=== PATIENT | male | born 1945 | race Caucasian/White ===

== ENCOUNTER 2019-08-10 05:50 | Inpatient (IN) | payer MEDICARE, OTHER, SELFPAY ==
[2019-07-27 12:40] VITALS: BMI 35.1
[2019-08-10] VITALS (14 sets, daily range): BP systolic 96–137; BP diastolic 57–78; PULSE 51–82; RESP 9–18; TEMP 36.1–37.4; O2SAT 90–95; BMI 35.1
--- NOTE | 2019-08-10 06:31 | DI.RAD.S_ITS ---
PROCEDURE: XR SHOULDER RT MIN 2V INDICATIONS: post op films TECHNIQUE: 1 views of the shoulder were acquired. COMPARISON: [facility] [place], [place], XR SHOULDER 2+ VIEWS RIGHT, 06/14/2019, 11:37. FINDINGS: Bones: There is right shoulder arthroplasty with prosthesis in anatomic alignment. There is lower cervical spine fusion. No suspicious bony lesions. Visualized ribs appear intact. Soft tissues: No suspicious soft tissue calcifications. Overlying postsurgical changes are noted. IMPRESSION: Right shoulder arthroplasty with prosthesis in anatomic alignment. Dictated by: Ignacia Asif M.D. on 08/10/2019 at 13:46 Approved by: Ignacia Asif M.D. on 08/10/2019 at 13:46
[2019-08-10] MEDS: PREGABALIN 75 MG CAPSULE PO (06:56)
[2019-08-10] MEDS: MELOXICAM 7.5 MG TABLET 15 MG PO (06:56)
[2019-08-10] MEDS: ACETAMINOPHEN 325 MG TABLET 975 MG PO ×3 (06:56→20:24)
--- NOTE | 2019-08-10 07:03 | PM.PREOP ---
Pre-operative Note Interval Note History & Physical reviewed/Exam performed by Physician: Yes Changes to H&P: No
[2019-08-10] MEDS: LACTATED RINGERS 1,000 ML 42 ML IV ×2 (07:23→10:54)
[2019-08-10] MEDS: MIDAZOLAM 2 MG/2 ML VIAL IV (08:13)
[2019-08-10] MEDS: CEFAZOLIN 2 GM/100 ML FROZ.PIGGY IV (08:14)
--- NOTE | 2019-08-10 08:15 | SUR.PREOP ---
Block start time [0804] . Monitoring initiated and maintained throughout procedure. Oxygen and medications given per anesthesiologist instructions. Patient remained stable throughout procedure, no adverse reactions noted. Block end time [0808].
[2019-08-10] MEDS: TRANEXAMIC ACID 1,000 MG VIAL 1000 MG INJ ×2 (08:30→10:56)
[2019-08-10] MEDS: BUPIVACAINE 0.5% W/ EPI (PF) 30 ML VIAL INJ (08:47)
--- NOTE | 2019-08-10 09:17 | SUR.OPER ---
Beach chair with Schlein shoulder positioner. Lower body on padded OR bed. Head in foam padded head cradle, secured with straps. Non-operative arm secured <90 degrees abduction. Pillow under knees, gel pad to heels. Safety belt at thigh. Cloth tape over blanket over lower legs.
--- NOTE | 2019-08-10 09:18 | P.PCN_ITS ---
Procedures Date/Time Date of procedure: 08/10/19 Time of procedure: 07:54 Nerve Block Time out performed: Yes Local anesthetic used: other (15mL 0.5opivacaine, 5mL 2* idocaine) Location of anesthetic used: interscalene Amount of anesthesia used (mL): 20 Nerve blocks: brachial plexus (interscalene) Procedure successful: Yes Patient tolerated procedure: well Complications: none Additional comments: Brachial plexus nerve block for post operative pain management. Risks and benefits discussed, including bleeding, infection, intravascular injection, nerve damage, block failure. Standard ASA monitors, NC O2. Pt supine. Chloroprep site preparation, sterile technique. Brachial plexus identified with US guidance, traced from supraclavicular to interscalene. 1mL 2% lidocaine skin wheal. 22g x 50mm Pajunk advanced with in-plane US guidance to brachial plexus. Negative aspiration. LA injected with intermittent negative aspiration. Good LA spread noted on US. No pain, no paraesthesia. Pt tolerated procedure well. Vital signs stable.
[2019-08-10] MEDS: THROMBIN (RECOMBINANT) 5,000 UNIT VIAL 5000 UNIT TOP (09:54)
[2019-08-10] MEDS: VANCOMYCIN 1,000 MG VIAL 1000 MG TOP (10:48)
--- NOTE | 2019-08-10 11:24 | PM.OP.1 ---
Operative Date/Time/Diagnoses Date of procedure: 08/10/19 Time of procedure: 11:00 Pre-op diagnosis: Stiff and painful right shoulder hemiarthroplasty Post-op diagnosis: same Procedure & Clinicians Procedure: Right revision reverse total shoulder replacement Same procedure as scheduled: Yes Indications: The patient is a 73-year-old gentleman who has previously undergone a hemiarthroplasty for osteoarthritis on the right. He has gone on to have stiffness it has been refractory to a prior lysis of adhesions. He continues to have pain and at this point wishes to have a revision surgery. The risks discussed included but were not limited to: Failure to relieve pain, failure to improve function or range of motion, infection, nerve damage, possible need for an extended humeral osteotomy, deep venous thrombosis, pulmonary embolism, bleeding requiring transfusion, myocardial infarction, stroke, permanent paralysis and . Surgeon: Jonny Jauregui Sap Integration Architect: Talita Bull Click Yes if Unassisted: No Anesthesia Type: General, Peripheral nerve block and Local Operative Notes Findings: Well-fixed humeral stem, placed slightly proud, extensive capsular scarring, no obvious evidence of infection, glenoid wear. Closure Type: primary Specimen(s): other (Three cultures of tissue.) Prosthetic devices, grafts, tissues, transplants, or devices: Implants used in this procedure were manufactured by the [employer] and the [employer] and included a DJO RSP prosthetic system with a 30 mm screw length glenoid base plate, 4 locking bolts measuring 30 mm, 26 mm, 14 mm, and 14 mm, a 36 mm neutral glenoid head with retaining screw, an 8 mm P2 porous-coated stem, and a 36 mm standard humeral socket. From [employer] two cerclage tapes were used. Applied: implant(s) Estimated Blood Loss (mL): 250 Blood products transfused: none Procedure in detail: The patient was seen in the preoperative area where they identified the right shoulder as the operative site and this was marked with my initials. They received preoperative antibiotics and underwent the induction of an interscalene block. They were taken to the operating room and placed on the operating room table in a supine position with the underwent the induction of a general anesthetic. There were then repositioned in the ?beach chair? position using a dedicated positioner. All pressure points were well padded. The knees were slightly bent to prevent tension on the sciatic nerves. The right arm was prepared from the fingertips to the base of the neck with ChloraPrep in the usual fashion and draped through sterile drapes. An approximately 15 cm incision was created starting at the clavicle just above the coracoid and going to the deltoid insertion. This was placed about a cm lateral to the prior incision which was too medial to allow good glenoid access. The deltopectoral interval was used to access the shoulder, the vein was absent on this revision surgery. The tissue planes underneath the deltoid and the pectoralis were bluntly developed using a [place] elevator. There was extensive scarring. The lateral aspect of the conjoined tendon was identified and developed. The bicipital groove was identified and a subscapularis peel performed. The shoulder was dislocated and the remaining rotator cuff released intentionally to allow access for reverse total shoulder replacement. The humeral head of the hemiarthroplasty was removed using the ?tuning fork?. Soft tissue from under the humeral head was taken for culture and the remainder was removed to allow access to the collar. Flexible osteotomes were placed along the metaphyseal portion of the prosthetic in an attempt to loosen it. The slap hammer was then used but there was no evidence of the prosthetic coming loose from the humerus. After several minutes of attempting this I elected to proceed with a extended humeral osteotomy. The incision was extended distally to the upper biceps region. The biceps was taken medially. A vertical periosteal defect was created for from the bicipital groove distally to below the deltoid insertion. This was done with a narrow saw blade. A horizontal saw cut including the lateral 1/3 of the humeral shaft was created at the end of this to prevent unplanned fractures. The cerclage tapes from [employer] were then placed around the humerus in the standard technique at the level of the pectoralis major tendon passing the sutures from medial to lateral and being careful to remain directly on the humeral cortex to avoid neurovascular structures. Osteotomes were then placed in the defect vertically and twisted slightly to debond the prosthetic. The osteotomes were left in the gap as a spacer while of the slap hammer was attached once again to the proximal humerus and used to remove the prosthetic. The cerclage sutures were then preliminarily tightened to reapproximate the extended humeral osteotomy. In addition to the cerclage tapes, a 2. Ethibond was placed circumferentially around the metaphyseal portion of the humerus in a [id number] and tied to provide cerclage fixation there. A proximal humeral protector was then placed. Retractors were placed access the glenoid. A 360 degree release was performed of the remaining subscapularis with care being taken to protect the axillary nerve. The soft tissues were removed circumferentially around the glenoid. The guide was used to drill the guide hole in the center of the inferior glenoid. The tap was placed and used as a guide for the reamer. The tap was then removed and the glenoid base plate inserted. The peripheral locking screws were then placed through the appropriate guide. A trial glenoid head was applied. We then turned our attention to the humerus. The proximal humeral protector was removed. Cylindrical reamers were used to size the canal. Despite the fact we had removed a 12 stem, we could only ream with the cylindrical reamers to a size 10. I elected not to go beyond this. Broaching was then performed beginning with a small broach and working up until a line to line fit with the reamer was obtained. The guide for the proximal metaphyseal reamer was then applied and the metaphysis was reamed appropriately. The trial metaphyseal portion of the body was then applied to the broach. Trial reductions were performed and the size of the glenoid head and the cup were optimized. Stability was checked in maximal internal and external rotation and range of motion was checked to allow access to the top of the head, internal rotation to an excess of 50? in the ?scarecrow position? and the ability to reach the groin. The appropriate final prosthetic components were then opened. The glenoid head was impacted into position and checked for rotational and axial stability before placing the set screw. The canal was prepared with a bone plug and pulsatile lavage. It was dried with a clean sponge. Gentamicin-containing cement was then placed. The humeral prosthetic was then impacted into position. The humeral cup was placed. The joint was relocated and irrigated. Tissue samples from the supraspinatus and the capsule were taken as well for culture. The wound was extensively irrigated and 1 g of vancomycin powder placed in the wound. The deltopectoral interval was reapproximated with 0 Vicryl. Subcutaneous layer was closed with interrupted 3-0 Vicryl and skin with a running 3 0 V lock suture. Subcutaneous tissues were then infiltrated with 0.5% Marcaine for postoperative pain control. An Aquacel Ag dressing was applied and the patient's arm was placed in a sling. The patient was then transferred to the recovery room in good condition having tolerated the procedure well. Complications: none Post-operative Condition: stable Disposition: PACU Plan for aftercare: The patient will be allowed to do pendulum exercises and to use his hand in front of his body below shoulder level. He will be maintained on a standard total shoulder rehab protocol. He likely will be discharged tomorrow morning.
--- NOTE | 2019-08-10 12:28 | SUR.PHASEI ---
Patient taken up to room 207. All belongings with patient including CPAP, hearing aids, and glasses. Family at bedside. Receiving RN, Raissa, received patient in room.
[2019-08-10] MEDS: LACTATED RINGERS 1,000 ML 125 ML IV ×2 (13:21→21:55)
--- NOTE | 2019-08-10 13:53 | PC.NURSE ---
Day Shift- Report rec'd from FREDERICK Chavez in PACU at 1200 on current pt status. Pt arrived to unit to room 207 at 1223 via bed. Oriented to call light, bed function. Pt denies nausea, ate late lunch without issue. Denies pain to right shoulder incision area, does c/o 2/10 pain to right elbow, repositioned sling and pillow placed under elbow, shoulder in neutral position, ice pack to incision area. Right shoulder aquacel dressing CDI. radial pulse moderate upon palpation, numbness to right thumb tip and forefinger. Pt states has chronic neuropathy to BLE from toes to knees. Family in to see pt, no voiced concerns. Call light within reach. bed alarm on.
--- NOTE | 2019-08-10 16:32 | PT.IIE ---
Current Diagnoses Pain due to internal orthopedic prosthetic devices, implants and grafts, initial encounter (08/10/19) Surgery Performed Operation Date: 08/10/19 07:45 Actual Procedures p Revision Shoulder Arthroplasty Gleniod & Humeral Components(Right) - Jonny Jauregui MD Surgical History (Last Updated 07/27/19 @ 13:41 by Lana Carter, RN) History of bladder surgery (Acute ~2008) History of hemiarthroplasty of right shoulder (Acute ~04/2016) History of lumbar fusion (Acute) History of penile implant (Acute) History of tonsillectomy and adenoidectomy (Acute) History of total left hip arthroplasty (Acute ~2002) Hx of foot surgery (Acute) Hx of hand surgery (Acute ~2015) Hx of neck surgery (Acute ~1990) Hx of parathyroidectomy (Acute) S/P cervical spinal fusion (Acute) S/P orchiopexy (Acute) Medical History (Last Updated 07/27/19 @ 13:48 by Lana Carter RN) Allergic rhinitis (Acute) Anemia (Acute) Atrial tachycardia (Acute) Axillary artery injury (Acute) Bladder cancer (Acute ~2007) BPH (benign prostatic hyperplasia) (Acute) Colitis (Acute) Diabetes (Acute) Former smoker (Acute) GERD (gastroesophageal reflux disease) (Acute) HLD (hyperlipidemia) (Acute) HTN (hypertension) (Acute) IBS (irritable bowel syndrome) (Acute) Kidney stones (Acute) MGUS (monoclonal gammopathy of unknown significance) (Acute) JOAQUIN on CPAP (Acute) PAF (paroxysmal atrial fibrillation) (Acute) Peripheral neuropathy (Acute) PTSD (post-traumatic stress disorder) (Acute) Subdural hematoma (Acute ~12/2015) Syncope (Acute ~2015) Thrombocytopenia (Acute) Wide-complex tachycardia (Acute) Physical Therapy Inpatient Evaluation/Re-Eval M1 PT/OT-IP Prior Functional Status Start: 08/10/19 13:05 Freq: NEEDED Status: Active Protocol: Document 08/10/19 16:12 AW (Rec: 08/10/19 16:32 AW [id number]) Medical Review Prior Functional Status Medical History Reviewed Yes Communication WNL Mobility and Gait Pt states he was using a SPC occasionally until about a month ago. He felt gabapentin caused some unsteadiness necessitating use of an assistive device. Since he cut his dose a month ago, however , he has been ambulating without AD for household and shopping trip distances. Activities of Daily Living and IADL's Pt's helped him with some dressing tasks, including donning a coat. He was otherwise independent with ADL 's Prior Functional Level (Other details) Pt reports no falls within the past year. Social History Household Members spouse Living Arrangements House Number of Floors (Floors) One Floor Number of Stairs To Enter/Railing? Level entrance and ramped entry. No stairs. Home Environment Standard Height Toilet,Walk in Shower Home Equipment Front Wheel Walker,Straight Cane,Shower Seat with Backrest ,Hand Held Shower,Hospital Bed ,Grab Bars Near Toilet,Grab Bars In Shower Employment Status Retired Additional Social History Comment Pt lives with his , Sidra, who is able and available to assist as needed. He notes his first had MS and the house was outfit appropriately to accommodate her needs. M2 PT-IP Current Condition Start: 08/10/19 13:05 Freq: NEEDED Status: Active Protocol: Document 08/10/19 16:12 AW (Rec: 08/10/19 16:32 AW [id number]) Physical Therapy Current Condition Current Condition Evaluation Date 08/10/19 Treatment Diagnosis s/p revision R TSA, impaired mobility and ADL's Precautions Shoulder Precautions Sling,PROM,Internal Rotation to Body,No External Rotation, No Abduction,Forward Flexion to 90 degrees,Pendulums Brace shoulder sling at all times Weight Bearing Status Weight Bearing Status Full Weight Bearing M3 PT-IP Subjective Start: 08/10/19 13:05 Freq: NEEDED Status: Active Protocol: Document 08/10/19 16:12 AW (Rec: 08/10/19 16:32 AW [id number]) Subjective Physical Therapy Visit Type Type Initial Evaluation Visit Start Time 14:12 Visit Stop Time 14:52 Total Visit Minutes 40 Number of SOFTWARE ANALYST Visits 0 Physical Therapy Visit Comments Patient Comments Pt is agreeable to work with PT Patient Goals To go home with spouse assist Therapy Pain Assessment Pain When Pain Assessed During Mobility Pain Present Pain Present Pain Reported Location Right Shoulder Intensity 3 Pain Management Techniques Apply Cold,Timing of Activity with Medications M4 PT-IP Mobility and Gait Start: 08/10/19 13:05 Freq: NEEDED Status: Active Protocol: Document 08/10/19 16:12 AW (Rec: 08/10/19 16:32 AW [id number]) PT-Bed Mobility Assessment Supine to Sit Supine to Sit Standby Assistance,Head of Bed Elevated Sit to Supine Sit to Supine Standby Assistance,Head of Bed Elevated Scooting Scooting to Edge of Bed Standby Assistance Scooting Up and Down in Bed Standby Assistance PT-Transfer Assessment Sit to and From Stand Sit to and from Stand Standby Assistance Equipment Transfer Assistive Device Gait Belt Orthotic/Prosthetic Devices or Brace: Yes Transfers Transfer Destination Bed Transfer Technique pt ambulated without AD Transfer Ability Level of Assist Standby Assistance Comments Mobility Comments Pt required no more than SBA assist with all mobility but did need occasional verbal cues to avoid shoulder elevation during activity. Gait Assessment Gait Gait Assistance Required: Standby Assistance Distance (Feet) 100 Able to Maintain Weight Bearing Status Yes During Gait Assistive Devices Assistive Device Gait Belt Orthotic/Prosthetic Devices or Brace: Yes Gait Deviations General Gait Pattern Decreased Stride Length, Decreased Feet Clearance Factors Limiting Gait Function Factors Limiting Gait Function Decreased Activity Tolerance Comments Gait Comments Pt ambulated to sink for demonstration of sling fitting and stood without UE support SBA. He then ambulated in the heaton 100 feet SBA without assistive device. Stair Climbing Assessment Comments Stair Climbing Comments Not assessed. No stairs at home. PT-Balance Assessment Sitting Balance and Reactions Static Sitting Balance Ability Normal Dynamic Sitting Balance Ability Normal Standing Balance and Reactions Static Standing Balance Ability Good Dynamic Standing Balance Ability Good Device Used none M5 PT-IP Objective Assessments Start: 08/10/19 13:05 Freq: NEEDED Status: Active Protocol: Document 08/10/19 16:12 AW (Rec: 08/10/19 16:32 AW [id number]) Orientation Orientation/Cognition Level of Alertness Alert Orientation Name,Day of Week,Place, Situation Language Function Ability No Deficits Noted Safety Awareness Understands Safety Issues Memory Description No Deficits Noted Gross Range of Motion Upper Extremity ROM Assessment Right Impaired Lower Extremity ROM Assessment Within Functional Limits Strength Upper Extremity Strength Assessment Right Impaired Lower Extremity Strength Assessment Within Functional Limits Comments Strength Comments L UE and B LE grossly 5/5 Coordination Assessment Gross Coordination Gross Coordination WNL Sensation Assessment Sensation Gross Sensation Right UE Impaired,Right LE Impaired,Left LE Impaired Comments Sensation Comments R UE light touch impaired in median distribution. B LE light touch impaired in stocking distribution from knee joint down with distal more affected than proximal. Muscle Tone Muscle Tone WNL Yes M6 PT-IP Treatment Start: 08/10/19 13:05 Freq: NEEDED Status: Active Protocol: Document 08/10/19 16:12 AW (Rec: 08/10/19 16:32 AW [id number]) Physical Therapy Treatment Exercises Exercises Shoulder Pendulums,Elbow Flexion/Extension,Wrist ROM, Hand ROM Education Education Provided Precautions,Post-Op Packet, Safety Brace Education Donning,Marshall,Patient Other Treatments Other Treatment Performed Educated pt on role of PT, plan of care, post op precautions, AROM for elbow, wrist, and hand, and shoulder pendulums. Also discussed strategies for ADL management and left handout with same information. With mirror for feedback, educated pt on proper fitting of sling. Daughter was present and able to perform fitting with cues. Will need to educate on sling fitting at morning session. M7 PT-IP Assessment and Plan Start: 08/10/19 13:05 Freq: NEEDED Status: Active Protocol: Document 08/10/19 16:12 AW (Rec: 08/10/19 16:32 AW [id number]) PT Summary Assessment and Plan Potential Rehabilitation Potential Excellent Status of Condition at Evaluation Evolving Summary Impairments Pain,ROM,Strength,Sensation, Bed Mobility,Transfers,Gait, Activity Tolerance Assessment Summary Kamran is a left-handed 73 yo man with history of R shoulder hemiarthroplasty, R GH LAURA, and peripheral neuropathy. He was seen for PT evaluation on POD0 following revision of R shoulder to TSA. At baseline, he occasionally uses a SPC held in the right hand but notes he has not needed the cane for the past month and is feeling confident without it. On evaluation, pt presents with impaired R UE range of motion and strength as well as decreased independence with ADL's. PT recommendation is for home with spouse assist and outpatient PT once medically cleared. PT will need to see the patient at least one more time to review sling and ADL logistics with pt and his . Goals Bed Mobility Goal Independent Transfer Goal Independent Gait Goal Standby Assistance Gait Distance 200 Days to Meet Goals 1 Frequency of Treatment Frequency Of Treatment Twice a Day Treatment Plan Physical Therapy Treatment Plan Bed Mobility Training,Transfer Training,Gait Training, Therapeutic Exercise,Balance Retraining,Post Op Education, Discharge Planning,Hot or Cold Pack Other Recommendations and Next Treatment review sling fitting, Focus precautions, and ADL's information with pt and spouse . Recommendations To Nursing Amount of Assist Needed Standby Assistance Discharge Recommendations PT Discharge Recommendations Home with Assistance, Outpatient PT
[2019-08-10] MEDS: PANTOPRAZOLE 20 MG TABLET PO (17:05)
[2019-08-10] MEDS: LISINOPRIL 5 MG TABLET PO (17:05)
[2019-08-10] MEDS: OXYCODONE IR 10 MG TABLET PO ×2 (18:01→21:54)
[2019-08-10] MEDS: ATORVASTATIN 20 MG TABLET 40 MG PO (20:23)
[2019-08-10] MEDS: METOPROLOL ER 25 MG TABLET PO (20:23)
[2019-08-10] MEDS: DOCUSATE 100 MG CAPSULE PO (20:23)
[2019-08-10] MEDS: APIXABAN 5 MG TABLET PO (20:23)
[2019-08-10] MEDS: TAMSULOSIN 0.4 MG CAPSULE PO (20:23)
[2019-08-10] MEDS: GABAPENTIN 600 MG TABLET PO (20:23)
[2019-08-10] MEDS: ESCITALOPRAM 10 MG TABLET 5 MG PO (20:24)
[2019-08-11] VITALS: BP 118/66; PULSE 73; RESP 16; TEMP 36.8; O2SAT 93
[2019-08-11 04:36] VITALS: BP 120/62; PULSE 63; RESP 16; TEMP 37.1; O2SAT 92
[2019-08-11] MEDS: OXYCODONE IR 10 MG TABLET PO ×2 (04:36→08:48)
[2019-08-11 06:21] LABS: Hematocrit 30.9 % (41-53); Hemoglobin 10.8 g/dL (13.5-17.5); Mean Corpuscular HGB Conc 34.8 % (30-36); Mean Corpuscular Hemoglobin 31.4 PG (26-34); Mean Corpuscular Volume 90.3 fL (80-100); Platelet Count 123 X10^3/uL (150-400); Red Blood Cell Count 3.43 X10^6/uL (4.5-5.9); Red Cell Distribution Width 13.9 % (11.6-14.8); White Blood Cell Count 8.6 X10^3/uL (4.5-11.0)
[2019-08-11 08:45] VITALS: BP 104/61; PULSE 60; RESP 16; TEMP 36.7; O2SAT 92
[2019-08-11] MEDS: DOCUSATE 100 MG CAPSULE PO (08:47)
[2019-08-11] MEDS: GABAPENTIN 600 MG TABLET PO (08:47)
[2019-08-11] MEDS: POLYETHYLENE GLYCOL 3350 17 GM POWD.PACK PO (08:47)
[2019-08-11] MEDS: METOPROLOL ER 25 MG TABLET PO (08:48)
[2019-08-11] MEDS: ACETAMINOPHEN 325 MG TABLET 975 MG PO (08:48)
[2019-08-11] MEDS: APIXABAN 5 MG TABLET PO (08:48)
--- NOTE | 2019-08-11 09:35 | PT.IPTN ---
Current Diagnoses Pain due to internal orthopedic prosthetic devices, implants and grafts, initial encounter (08/10/19) Surgery Performed Operation Date: 08/10/19 07:45 Actual Procedures p Revision Shoulder Arthroplasty Gleniod & Humeral Components(Right) - Jonny Jauregui MD Physical Therapy Treatment Note M2 PT-IP Current Condition Start: 08/10/19 13:05 Freq: NEEDED Status: Active Protocol: Document 08/10/19 16:12 AW (Rec: 08/10/19 16:32 AW [id number]) Physical Therapy Current Condition Current Condition Evaluation Date 08/10/19 Treatment Diagnosis s/p revision R TSA, impaired mobility and ADL's Precautions Shoulder Precautions Sling,PROM,Internal Rotation to Body,No External Rotation, No Abduction,Forward Flexion to 90 degrees,Pendulums Brace shoulder sling at all times Weight Bearing Status Weight Bearing Status Full Weight Bearing M3 PT-IP Subjective Start: 08/10/19 13:05 Freq: NEEDED Status: Active Protocol: Document 08/11/19 09:07 SP (Rec: 08/11/19 10:32 SP [id number]) Subjective Physical Therapy Visit Type Type Treatment Note Visit Start Time 09:07 Visit Stop Time 09:35 Total Visit Minutes 28 Number of TRIMMER OPERATOR THREE KNIFE Visits 1 Physical Therapy Visit Comments Patient Comments Pt agreeable to work with PT. Patient Goals PT to go home with and complete CG training. Therapy Pain Assessment Pain When Pain Assessed During Mobility Pain Present Pain Present Pain Reported Location Right Shoulder Intensity 2 Scale Used Numeric (1 - 10) Description Pressure,Spasm Pain Management Techniques Apply Cold,Re-positioning, Timing of Activity with Medications Right Elbow Intensity 2 Scale Used Numeric (1 - 10) Description Tender Pain Behaviors Restlessness Pain Management Techniques Re-positioning M4 PT-IP Mobility and Gait Start: 08/10/19 13:05 Freq: NEEDED Status: Active Protocol: Document 08/11/19 09:07 SP (Rec: 08/11/19 10:32 SP [id number]) PT-Bed Mobility Assessment Supine to Sit Supine to Sit Minimal Assistance,Head of Bed Elevated,Bedrails Scooting Scooting to Edge of Bed Standby Assistance PT-Transfer Assessment Sit to and From Stand Sit to and from Stand Standby Assistance Equipment Transfer Assistive Device Gait Belt Orthotic/Prosthetic Devices or Brace: Yes Transfers Transfer Destination Chair Transfer Technique Pt ambulated with no AD Transfer Ability Level of Assist Standby Assistance Comments Mobility Comments Pt was laying in bed when arrived, in room. Pt completed caregiver training with including bed mob, transfer, gait, don/doff sling and gait belt with demonstration given by TRIMMER OPERATOR THREE KNIFE x1 and good follow through. Pt required Min A of 1 to complete supine to sitting out R side of bed to assimulate at home environment with HOB elevated (same ability at home ), and use of bed rail with ROLLWAY MAN of 's arm to pull from , cued for using LUE to push into bed to reposition to sitting with improvement CGA and scoot to EOB SBA. Educated and patient don/doff sling while arm rested in his lap with good demonstration. Pt was ableto complete sit to stand from EOB with no AD SBA provided by , no LOB or report of dizziness. Pt preferred to sit in chair SBA when returned from a walk. All needs were with in reach when left. Dr Jauregui arrived at end of tx to reassess and stated all clear to DC today, reviewed activity allowed to actively do R shld FF <90* in front and across body but may need LUE support for comfort, pendulum and AROM hand and elbow when out of sling. Follow up with outpatient PT. Gait Assessment Gait Gait Assistance Required: Standby Assistance Distance (Feet) 240 Able to Maintain Weight Bearing Status Yes During Gait Assistive Devices Assistive Device Gait Belt Orthotic/Prosthetic Devices or Brace: No Gait Deviations General Gait Pattern Decreased Stride Length, Decreased Feet Clearance Factors Limiting Gait Function Factors Limiting Gait Function Decreased Activity Tolerance Comments Gait Comments Pt was able to ambulate from side of bed and around hallway quad approx 240 ft no AD required, small RICK stride length, no LOB. provided SBA, gait belt donned for safety by . Stair Climbing Assessment Comments Stair Climbing Comments NOt assessed. No stairs at home. PT-Balance Assessment Sitting Balance and Reactions Static Sitting Balance Ability Normal Dynamic Sitting Balance Ability Normal Standing Balance and Reactions Static Standing Balance Ability Good Dynamic Standing Balance Ability Good Device Used none M5 PT-IP Objective Assessments Start: 08/10/19 13:05 Freq: NEEDED Status: Active Protocol: Document 08/10/19 16:12 AW (Rec: 08/10/19 16:32 AW [id number]) Orientation Orientation/Cognition Level of Alertness Alert Orientation Name,Day of Week,Place, Situation Language Function Ability No Deficits Noted Safety Awareness Understands Safety Issues Memory Description No Deficits Noted Gross Range of Motion Upper Extremity ROM Assessment Right Impaired Lower Extremity ROM Assessment Within Functional Limits Strength Upper Extremity Strength Assessment Right Impaired Lower Extremity Strength Assessment Within Functional Limits Comments Strength Comments L UE and B LE grossly 5/5 Coordination Assessment Gross Coordination Gross Coordination WNL Sensation Assessment Sensation Gross Sensation Right UE Impaired,Right LE Impaired,Left LE Impaired Comments Sensation Comments R UE light touch impaired in median distribution. B LE light touch impaired in stocking distribution from knee joint down with distal more affected than proximal. Muscle Tone Muscle Tone WNL Yes M6 PT-IP Treatment Start: 08/10/19 13:05 Freq: NEEDED Status: Active Protocol: Document 08/11/19 09:07 SP (Rec: 08/11/19 10:32 SP [id number]) Physical Therapy Treatment Exercises Exercises Shoulder Pendulums,Elbow Flexion/Extension,Wrist ROM, Hand ROM Education Education Provided Precautions,Post-Op Packet, Safety Brace Education [place],Patient, Caregiver Other Treatments Other Treatment Performed TRIMMER OPERATOR [employer] KNIFE reviewed post-op exercises and precautions (see comments in mobility section) wtih patient and with good demonstration and don/doffing R shld sling with occasional cuing. Suggested having wrist elevated higher than elbow in sling to provide elbow support with comments felt better and not as much elbow tenderness. M7 PT-IP Assessment and Plan Start: 08/10/19 13:05 Freq: NEEDED Status: Active Protocol: Document 08/11/19 09:07 SP (Rec: 08/11/19 10:32 SP [id number]) PT Summary Assessment and Plan Potential Rehabilitation Potential Excellent Status of Condition at Evaluation Evolving Summary Impairments Pain,ROM,Strength,Sensation, Bed Mobility,Transfers,Gait, Activity Tolerance Assessment Summary Pt seen one more tx including caregiver training with patient and including sling mgt, post op exercises, bed mobiltiy requiring increased support to get out of R side of bed to assimulate home with ROLLWAY MAN Min by , cued use LUE to WB trunk transitino to sitting decreased CGA. SBA sit to stand and transfer in to chair when returned from walk, no AD required. Pt was able to walk further distance 240 ft no AD SBA provided by , no LOB demonstrated. Pt is ok to go home with to provide assistance for him and recommend outpatient PT to progress strength, ROM per physician's protocol. Goals Bed Mobility Goal Independent Transfer Goal Independent Gait Goal Standby Assistance Gait Distance 200 Days to Meet Goals 1 Frequency of Treatment Frequency Of Treatment Twice a Day Treatment Plan Physical Therapy Treatment Plan Bed Mobility Training,Transfer Training,Gait Training, Therapeutic Exercise,Balance Retraining,Post Op Education, Discharge Planning,Hot or Cold Pack Other Recommendations and Next Treatment review sling fitting, Focus precautions, and ADL's information with pt and spouse . Recommendations To Nursing Amount of Assist Needed Standby Assistance Discharge Recommendations PT Discharge Recommendations Home with Assistance, Outpatient PT
--- NOTE | 2019-08-11 10:04 | PM.DS.1 ---
History of Present Illness History of Present Illness Date Patient Seen: 08/11/19 Time Patient Seen: 10:04 Chief complaint: [id number] Narrative: The history and physical is contained in the chart in a previously completed note. Please refer to that note for this information. Discharge Providers Provider Date of admission: 08/10/19 05:50 Discharge Date: 08/11/19 Primary care physician: Jordan Wills MD Consults: 08/10/19 12:35 Consult to Discharge Planning Routine Comment: Consult to Physical Therapy Evaluate & Treat Comment: PROM 90 FF, 0 ER, 0 Abd, IR to body, pendulums Physician Instructions: Evaluate and Treat Discharge provider: Jonny Jauregui MD Summary Hospital Course Discharge Diagnosis: 1. Painful, stiff right shoulder hemiarthroplasty 2. Post hemorrhagic anemia Hospital Course: The patient was admitted to the hospital and taken directly to the operating room on August 10, 2019. He underwent a right shoulder revision of the hemiarthroplasty to a reverse total shoulder. This required an extended humeral osteotomy. He tolerated the procedure well. He appeared to be ready for discharge on postoperative day 1. Status at Discharge Cognitive/behavioral status at discharge: oriented Functional status at discharge: independent ambulation Overall status at discharge: patient is progressing back to baseline Time Spent with Patient Time spent: Less than 30 minutes Exam Vital Signs (past 8 hours): - 08/11/19 04:36 08/11/19 08:45 Temperature 98.7 F 98.1 F Pulse Rate 63 60 Respiratory Rate 16 16 Blood Pressure 120/62 104/61 Pulse Oximetry 92 92 Oxygen Delivery Method Room Air Oxygen Flow Rate 0 Narrative Exam Narrative: Right shoulder wound is dressed with no drainage on the bandage. Light touch is intact in the radial, ulnar, median, muscular cutaneous and axillary nerve distribution. He can extend his thumb, abduct his thumb, abduct his fingers, extend his wrist and can fire his biceps and deltoid. Objective Labs Result Diagrams: 08/11/19 06:01 Labs: Laboratory Results - last 24 hr 08/11/19 06:01 WBC 8.6 RBC 3.43 L Hgb 10.8 L Hct 30.9 L MCV 90.3 MCH 31.4 MCHC 34.8 RDW 13.9 Plt Count 123 L Discharge Plan Discharge Plan Patient Disposition: Home Discharge orders & Medications Prescriptions: New acetaminophen 325 mg Tablet 975 mg PO TID 30 Days Qty: 270 RF: 0 oxycodone 5 mg Tablet 5 mg PO Q3HR PRN (Reason: Pain, Moderate (4-6)) Qty: 40 RF: 0 Continued lisinopril 2.5 MG tablet 5 mg PO QPM Qty: 0 RF: 0 (DME) Respironics Dreamstation CPAP Qty: 1 RF: 0 atorvastatin 40 mg Tablet 40 mg PO BEDTIME RF: 0 metoprolol succinate 50 mg Tablet Extended Release 24 Hr 25 mg PO BID RF: 0 gabapentin 300 mg Capsule 600 mg PO TID RF: 0 omeprazole 20 mg Capsule,Delayed Release(Dr/Ec) 20 mg PO QPM RF: 0 escitalopram oxalate 5 mg Tablet 5 mg PO BEDTIME RF: 0 Eliquis 5 mg Tablet 5 mg PO BID RF: 0 tamsulosin [Flomax] 0.4 mg capsule 0.4 mg PO BEDTIME RF: 0 Follow up/Referrals: Jonny Jauregui MD [Physician] - 2 Weeks Jordan Wills MD [Primary Care Provider] - Discharge Health Status Multidrug resistant organism: No MDRO Diet/Activity/Treatments Diet: Diet as Tolerated and Regular Activity: You may use your right arm in front of your body below shoulder level. Continue the sling until directed by Physical therapy. You may do pendulum exercises. Cold/Heat Therapy: Apply ice to the right shoulder for 15 minutes every hour as needed for pain control. Skin/Wound/Dressing Care Report to your healthcare provider any signs of infection, such as:: chills, fever, night sweats, increased pain, unusual drainage and unusual redness Dressing: Leave the dressing intact until your postoperative follow-up. You may shower with the dressing in place. If the central strip of the dressing becomes saturated with either water or blood, please call the office. Visit Report/Discharge Packet Instructions: How to Prevent Falls, DI for Postoperative Pain, DI for Prescription Opioid Use, DI for Shoulder Replacement, Oxycodone Stand Alone Forms: Surgery Discharge Visit Report Forms: Patient Portal/API, Stroke Signs & Symptoms Discharge Data Primary Care Provider: Jordan Wills Quality VTE Deep Vein Thrombosis/Pulmonary Embolism Present on Admission: No
--- NOTE | 2019-08-11 11:25 | PC.NURSE ---
Day Shift- Pt's pain to right shoulder 3-/, controlled with PRn Oxycodone and scheduled Tylenol. Right shoulder aquacel dressing CDI, CMS+, radial pulse moderate upon palpation. Right arm sling in place. OOB with PT, pt's and daughter at bedside, pt states is ready for discharge. Discharge summary packet reviewed with pt, his , and daughter. From [id number]. All questions answered. Pt also to refer to discharge paperwork. States has all belongings. F/U appointment already made prior to hospitalization, pt states having stool softeners and PRN Oxycodone prescription at home. Pt left unit at 1146 via wheelchair with [employer]ER INSPECTOR escort, pt in no distress. His and daughter at his side.
== END 2019-08-11 11:46 | disposition home or self-care (01) | DRG 483 ==
PROVIDERS: Admitting Provider Orthopaedic Surgery; Family Provider Family Medicine; PCP Family Medicine; Visit Provider Orthopaedic Surgery
PROC: 0RQJ0ZZ Repair Right Shoulder Joint, Open Approach (ICD-10-PCS; CPT 23472; principal; 2019-08-10 07:45)
DX: T84.84XA Pain due to internal orthopedic prosthetic devices, implants and grafts, initial encounter (principal); D69.6 Thrombocytopenia, unspecified; I48.0 Paroxysmal atrial fibrillation; D47.2 Monoclonal gammopathy; K21.9 Gastro-esophageal reflux disease without esophagitis; I10 Essential (primary) hypertension; E78.5 Hyperlipidemia, unspecified; E11.42 Type 2 diabetes mellitus with diabetic polyneuropathy; F32.9 Major depressive disorder, single episode, unspecified; G47.33 Obstructive sleep apnea (adult) (pediatric); I25.10 Atherosclerotic heart disease of native coronary artery without angina pectoris; Z87.891 Personal history of nicotine dependence; Z85.51 Personal history of malignant neoplasm of bladder; Z79.01 Long term (current) use of anticoagulants
CPT/HCPCS: 36415; 64450; 73020; 85027; 87070; 87075; 87176; 87205; 94760; 97116; 97161; 97530; C1776; J0690; J1100; J2250; J2405; J2704; J3010

== ENCOUNTER → 2020-11-06 11:49 | Outpatient (CLI) | payer MEDICARE, OTHER, SELFPAY ==
[2019-08-10 12:38] VITALS: BMI 35.1
[2020-11-06 13:57] LABS: COVID19 -Nasal RAPID Negative (Negative)
== END ==
PROVIDERS: Family Provider Family Medicine; PCP Family Medicine; Visit Provider Family Medicine Sleep Medicine
DX: Z20.822 Contact with and (suspected) exposure to COVID-19 (principal)
CPT/HCPCS: 87635; C9803